=== PATIENT | female | born 1985 | race Caucasian/White ===

== ENCOUNTER 2016-07-17 20:00 | Emergency (ER) | payer OTHER ==
[2016-07-17 20:31] VITALS: BP 134/91; PULSE 88; RESP 16; TEMP 98.6; O2SAT 95
[2016-07-17] MEDS ORDERED: predniSONE 20 MG TAB PO ONE (20:46)
--- NOTE | 2016-07-17 20:46 | UCPHY ---
H & P Time Seen by Provider: 07/17/16 20:24 Patient Type: New HPI/ROS: 30-year-old female presents complaining of swelling at the site of recent vaccination. No fevers chills, patient was started on cephalexin by PCP. Review of systems As per HPI General no fever no chills no weakness HEENT no eye pain no eye discharge. No eye redness, no sore throat Respiratory no cough, no shortness of breath Cardiac no chest pain, no peripheral edema GI no abdominal pain, no diarrhea, no constipation, no nausea, no vomiting no flank pain, no hematuria, no dysuria Musculoskeletal no myalgias, no joint pain Heme no easy bruising, no easy bleeding Endo no polyuria, no polydipsia Skin positive rashes, no pruritus Neuro no syncope, no dizziness, no headaches Psych is no suicidal ideation, no homicidal ideation Past Medical/Surgical History: Insulin-dependent diabetes type 1 Depression Social History: Denies excessive alcohol or drug use Smoking Status: Never smoked Physical Exam: 30-year-old female alert and oriented no acute distress nontoxic appearance afebrile Alert and oriented in no acute distress nontoxic appearance, afebrile Atraumatic normocephalic Neck no JVD Lungs clear to auscultation, no respiratory distress Heart regular rate and rhythm Extremities no cyanosis clubbing edema Left upper arm outer aspect of deltoid, 4 x 4 cm round erythematous indurated tender area No fluctuance, no drainage no lymphangitic streaks Constitutional: Initial Vital Signs Temperature (C) 37.0 C 07/17/16 20:25 Heart Rate 88 07/17/16 20:25 Respiratory Rate 16 07/17/16 20:25 Blood Pressure 134/91 H 07/17/16 20:25 O2 Sat (%) 95 07/17/16 20:25 O2 Delivery Mode Room Air Allergies/Adverse Reactions: No Known Allergies Allergy (Unverified 07/17/16 20:24) Home Medications: Medication Instructions Recorded Zoloft 25mg (*) 07/17/16 methylPREDNISolone [Medrol Dose 1 each PO AD #1 ea 07/17/16 Justin] novoLOG 07/17/16 Medical Decision Making ED Course/Re-evaluation: Patient seen and evaluated for reaction to vaccination Differential diagnosis considered Anaphylactoid type reaction, cellulitis Impression Likely more of an an anaphylactoid/allergic type reaction Cannot rule out cellulitis Plan Continue current cephalexin Will add diphenhydramine, Medrol Dosepak Follow-up PCP Return if worsening, high fever, lymphangitic streak - Data Points Medications Given: Discontinued Medications Diphenhydramine HCl (Benadryl) 50 mg PO EDNOW ONE Stop: 07/17/16 20:58 Last Admin: 07/17/16 21:07 Dose: 50 mg Prednisone (Prednisone) 60 mg PO EDNOW ONE Stop: 07/17/16 20:47 Last Admin: 07/17/16 20:47 Dose: 60 mg Departure - Departure Disposition: Home, Routine, Self-Care Clinical Impression: Post-vaccination reaction Condition: Good Instructions: Cellulitis (ED), Insect Bite or Sting (ED) Additional Instructions: Apply ice to the area. May take diphenhydramine every 6 hours for redness, swelling or itching. Referrals: NONE *PRIMARY CARE P,. [Primary Care Provider] - As per Instructions Prescriptions: methylPREDNISolone [Medrol Dose Justin] 1 each PO AD #1 ea - PQRS PQRS Measurement: na
[2016-07-17] MEDS ORDERED: diphenhydrAMINE 25 MG CAP PO ONE (20:57)
== END 2016-07-17 21:10 | disposition home or self-care (01) ==
LOC: CED 20:00
DX: T80.69XA Other serum reaction due to other serum, initial encounter (principal); M79.9 Soft tissue disorder, unspecified
CPT/HCPCS: 99202-PO; G0463-PO